=== PATIENT | male | born 1980 | race Caucasian/White ===

== ENCOUNTER 2024-01-07 13:20 | Emergency (ER) | payer SELFPAY ==
[~2024-01-07] VITALS: Ht 172.7 cm; Wt 79.4 kg
[2024-01-07 13:30] VITALS: BP 121/84; PULSE 118; RESP 18; TEMP 98.3
[2024-01-07] MEDS: KETOROLAC 30 MG/ML VIAL IVP ONE (14:17)
[2024-01-07] MEDS: NACL 0.9% 1,000 ML IV ONE (14:17)
== END 2024-01-07 14:10 | disposition left against medical advice (07) ==
LOC: MED 13:20
DX: E11.65 Type 2 diabetes mellitus with hyperglycemia (principal); R00.0 Tachycardia, unspecified; Z79.899 Other long term (current) drug therapy; Z79.4 Long term (current) use of insulin
CPT/HCPCS: 82948; 93005; 99283